=== PATIENT | female | born 1980 | race Two or more races ===

== ENCOUNTER 2021-03-23 09:55 | Emergency (ER) | payer OTHER, SELFPAY ==
--- NOTE | ~2021-03-23 | XR_ITS ---
EXAMINATION: XR THORACIC SPINE CLINICAL INFORMATION: Pain COMPARISON: None TECHNIQUE: 3 views of the thoracic spine were obtained. FINDINGS: There is no fracture or bone destruction seen and the vertebral alignment is normal. There is no disc space narrowing. There is no abnormality of the paraspinal soft tissues. XR/XR thoracic spine 3V IMPRESSION: Unremarkable examination.
--- NOTE | ~2021-03-23 | XR_ITS ---
EXAMINATION: XR LUMBOSACRAL SPINE WITH OBLIQUES CLINICAL INFORMATION: Pain COMPARISON: None TECHNIQUE: AP, both oblique, and lateral views of the lumbar spine. Lateral view of the lumbosacral junction. FINDINGS: The vertebral bodies and posterior elements are normal. The disc spaces are preserved and the vertebral alignment is normal. The paraspinal soft tissues are normal. XR/XR lumbar spine 4V min IMPRESSION: Unremarkable examination.
[2021-03-23 10:05] VITALS: BP 114/67; PULSE 84; RESP 18; TEMP 36.3; O2SAT 100; BMI 21.9
[2021-03-23] MEDS: NaPROXEN 500 MG TABLET PO (11:05)
[2021-03-23] MEDS: Lidocaine 4 % Patch ADH..PATCH 1 PATCH TRANSDERMA (11:06)
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
== END 2021-03-23 12:20 | disposition home or self-care (01) ==
PROVIDERS: Emergency Provider Emergency Medicine
DX: S39.012A Strain of muscle, fascia and tendon of lower back, initial encounter (principal); V43.52XA Car driver injured in collision with other type car in traffic accident, initial encounter; Y93.89 Activity, other specified; Y92.414 Local residential or business street as the place of occurrence of the external cause; Y99.9 Unspecified external cause status
CPT/HCPCS: 72072; 72110; 99283

== ENCOUNTER 2022-10-15 07:41 | Emergency (ER) | payer OTHER, SELFPAY ==
[2022-10-15 07:44] VITALS: BP 142/68; PULSE 110; RESP 19; TEMP 36.6; O2SAT 98; BMI 23.7
--- NOTE | 2022-10-15 08:02 | ED.ANXIETY ---
HPI - Anxiety General Chief Complaint: Nausea/Vomiting/Diarrhea Stated Complaint: anxiety attack Time Seen by Provider: 10/15/22 07:55 Source: patient Mode of arrival: ambulatory Limitations: no limitations History of Present Illness HPI narrative: 41-year-old female presents to the ER for evaluation of anxiety and nausea and vomiting. Patient states she has had a longstanding history of anxiety for several years of which is not treated. She states the last couple of weeks have been significantly worse than usual. She states last night she was doing all of her usual methods to try to help her anxiety and distract her mind, going on walks, taking a cold shower, going in front of the air conditioner. None of these interventions helped her. She was unable to sleep all night. This morning she was having a exacerbation and had a panic attack. She was hyperventilating and developed nausea and vomiting x1. Her mother brought her to the hospital for further evaluation. She is feeling better since arrival. She reports a feeling of bubbling and tightness in her chest. She denies any shortness of breath or abdominal pain. MD complaint: anxiety and other (Nausea and vomiting) Onset (ago): day(s) Symptoms: dyspnea Severity: severe Quality: worsening Place: home History of similar episodes: Yes Provoking factors: none known Relieving factors: nothing Exacerbating factors: thinking about event Associated symptoms: chest pain, diaphoresis and nausea/vomiting Related Data Previous Rx's Medication Instructions Recorded cyclobenzaprine 10 mg tablet 10 mg PO Q8H PRN Muscle spasm #14 03/23/21 tabs lidocaine 5 % topical patch 1 patch topical DAILY pain #15 ea 03/23/21 (Lidoderm) naproxen 500 mg tablet 500 mg PO BID PRN pain #14 tabs 03/23/21 hydroxyzine HCl 25 mg tablet 25 mg PO BID PRN anxiety #20 tabs 10/15/22 Allergies Allergy/AdvReac Type Severity Reaction Status Date / Time No Known Allergies Allergy Verified 10/15/22 07:43 Review of Systems Review of Systems: Yes all other systems are reviewed and are negative [facility] Social History Social History (System 03/23/21 @ 12:07 by Jany Stoll) Advance Directives: No Physical Exam Vital Signs: Vital Signs: Last Vital Signs Temp 98 F 10/15/22 07:44 Pulse 110 H 10/15/22 07:44 Resp 19 10/15/22 07:44 BP 142/68 H 10/15/22 07:44 Pulse Ox 98 10/15/22 07:44 BMI result Body Mass Index 23.7 Appearance: Alert. Oriented X3. No acute distress. Anxious Head: normocephalic, atraumatic. Eyes: Pupils equal, round and reactive to light. ENT: Pharynx normal. No tonsillar swelling or exudate. Neck: Normal inspection. Neck supple. CVS: Normal heart rate and rhythm. Pulses normal. Respiratory: No respiratory distress. Breath sounds normal. Abdomen: Soft and nontender. +BS x4 Skin: Skin warm and dry. Normal skin color. Normal skin turgor. No rashes. Extremities: No lower extremity edema. No joint swelling. Neuro/psych: Oriented X 3. No motor deficit. No sensory deficit. CN II-XII intact. Normal speech and cognition. Anxious but able to speak in complete sentences, make eye contact and answer questions approrpriately Medications Administered Discontinued Medications Generic Name Dose Route Start Last Admin Trade Name Robert PRN Reason Stop Dose Admin Lorazepam 1 mg 10/15/22 08:15 10/15/22 08:42 Lorazepam 1 Mg Tablet PO 10/15/22 08:16 1 mg ONCE ONE Administration Medical Decision Making Medical Decision Making MDM Narrative: 41-year-old female presenting to the ER for evaluation of panic attack associated with nausea, vomiting, chest discomfort. Feeling better since arrival to the ER. Only vomited x1. Nausea is improved. Has not taken any medications for anxiety before. Has never seen a therapist or psychiatrist. Her PCP referred her she never made the appointment. She is willing to try medications and agreeable to calling for referral for therapy today. 1 mg of Ativan ordered. Will reassess 9:28 - patient feeling significantly better. He is agreeable to therapy. Will discharge with p.r.n. hydroxyzine. She will collar PCP and follow up with therapy referral. Stable for discharge home. Differential Diagnosis Differential Diagnoses: The differential diagnosis associated with the presentation includes Panic attack, anxiety disorder, adjustment disorder, bipolar disorder, substance induced mood disorder, gastroenteritis, doubt ACS or cardiac etiology Critical Care Time Critical Care Time Critical Care Time: No Discharge Plan Discharge Clinical Impression: Anxiety Patient Disposition: Home, Self-Care Instructions: Panic Disorder (ED), Anxiety (ED) Additional Instructions: Take the prescribed medication as needed for anxiety. Follow-up with primary care doctor. Call for a referral for therapy. If you develop new or worsening symptoms call 911 or come back to the ER for further evaluation. Prescriptions: New hydroxyzine HCl 25 mg tablet 25 mg PO BID PRN (Reason: anxiety) Qty: 20 0RF No Action naproxen 500 mg tablet 500 mg PO BID PRN (Reason: pain) Qty: 14 0RF cyclobenzaprine 10 mg tablet 10 mg PO Q8H PRN (Reason: Muscle spasm) Qty: 14 0RF lidocaine [Lidoderm] 5 % adhesive patch,medicated 1 patch topical DAILY Qty: 15 0RF Rx Instructions: leave on most painful area for up to 12 hrs. May be substituted
[2022-10-15] MEDS: LORazepam 1 MG TABLET PO (08:42)
== END 2022-10-15 09:37 | disposition home or self-care (01) ==
PROVIDERS: Emergency Provider Emergency Medicine
DX: F41.9 Anxiety disorder, unspecified (principal); R11.2 Nausea with vomiting, unspecified; Z79.899 Other long term (current) drug therapy
CPT/HCPCS: 99282; 99283

== ENCOUNTER 2022-12-16 09:29 | Emergency (ER) | payer OTHER, SELFPAY ==
--- NOTE | 2022-12-16 | ECG_ITS ---
Test Reason : LEFT BREAST AREA PAIN Blood Pressure : / mmHG Vent. Rate : 076 BPM Atrial Rate : 076 BPM P-R Int : 148 ms QRS Dur : 078 ms QT Int : 386 ms P-R-T Axes : 070 064 045 degrees QTc Int : 434 ms Normal sinus rhythm Possible Left atrial enlargement RSR' or QR pattern in V1 suggests right ventricular conduction delay Abnormal ECG No previous ECGs available Referred By: Generic ED Physician Electronically Signed By:HIGINIO PATRICK MD
--- NOTE | ~2022-12-16 | CT_ITS ---
EXAMINATION: CT ABDOMEN AND PELVIS WITHOUT CONTRAST CLINICAL INFORMATION: Right flank to right groin swelling COMPARISON: None available. TECHNIQUE: Multidetector volumetric imaging was performed from the superior aspect of the liver through the pubic symphysis. Sagittal and coronal reformatted images were obtained on the technologist's workstation. This CT examination was performed using dose optimization techniques as appropriate, variously including the following: *Automated exposure control *Adjustment of mA and/or kV according to patient size (this includes techniques or standardized protocols for targeted exams where dose is matched to indication/reason for exam; i.e. 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 LUNG BASES: The visualized lung bases are unremarkable. Nonenlarged heart. No pericardial effusion. LIVER, GALLBLADDER, AND BILIARY TREE: The liver is normal in size, shape, and attenuation. No focal hepatic lesion or biliary ductal dilatation is present. The gallbladder is unremarkable with no evidence of radiopaque gallstones, gallbladder wall thickening, or obvious pericholecystic inflammatory changes. PANCREAS: Unremarkable. SPLEEN: Unremarkable. ADRENAL GLANDS: Unremarkable. KIDNEYS AND URETERS: The kidneys are normal in size, shape, and attenuation. No hydronephrosis or hydroureter. Symmetric, bilateral vague medullary hyperdensities without calculi. No perinephric stranding. BLADDER: Decompressed. GASTROINTESTINAL TRACT: Under distended stomach. Nonobstructive bowel pattern. Unremarkable appendix. Distended feces filled cecum and proximal ascending colon. Diverticulosis. ABDOMINAL WALL: No significant hernia is appreciated. LYMPH NODES: No pathologic lymphadenopathy. VASCULAR: Unremarkable. PELVIC VISCERA: Unremarkable. Likely 1.1 cm right ovarian cyst. Phleboliths. OSSEOUS STRUCTURES: Unremarkable. CT/CT abdomen pelvis wo IV con IMPRESSION: No significant abnormality.. No renal, ureteral, bladder calculi, or hydroureteronephrosis. Vague medullary hyperdensities, medullary sponge kidneys not excluded. Distended feces filled cecum and proximal ascending colon. Diverticulosis without diverticulitis. Fleischner guidelines were followed.
[2022-12-16 09:31] VITALS: BP 115/73; PULSE 84; RESP 16; TEMP 36.6; O2SAT 100; BMI 23.2
[2022-12-16 10:08] LABS: Basophils Absolute Auto 0.1 X10*3/uL (0.0-0.2); Basophils Percent Auto 0.4 % (0-2); Eosinophils Percent Auto 0.3 % (0-4); Hematocrit 42.5 % (37.0-47.0); Hemoglobin 14.5 g/dl (12.0-16.0); Imm Gran Abs Auto 0.04 X10*3/uL (0.00-0.03); Imm Gran Pct Auto 0.3 % (0.0-0.4); Lymphocytes Absolute Auto 1.3 X10*3/uL (1.2-4.9); Lymphocytes Percent Auto 10.4 % (20-40); MANUAL DIFF FLAG SCAN; Mean Corpuscular HGB Conc 34.1 g/dl (31.0-35.0); Mean Corpuscular Hemoglobin 31.5 pg (27.0-33.0); Mean Corpuscular Volume 92.2 fL (80.0-98.0); Monocytes Absolute Auto 0.5 X10*3/uL (0.1-1.2); Monocytes Percent Auto 3.7 % (2-11); Neutrophils Absolute Auto 10.7 x10*3/uL (2.0-8.3); Neutrophils Percent Auto 84.9 % (45-73); PLT CLUMP 1; Red Blood Count 4.61 X10*6/uL (4.20-5.50); Red Cell Distribution Width 13.2 % (11.0-16.0); SCAN SMEAR FLAG 1
[2022-12-16 10:09] LABS: White Blood Count 12.6 X10*3/uL (4.8-10.8)
[2022-12-16 10:21] LABS: Alanine Aminotransferase 10 U/L (0-31); Albumin Level 4.3 g/dL (3.5-5.0); Alkaline Phosphatase 53 U/L (39-117); Anion Gap 11 (12-20); Aspartate Amino Transferase 16 U/L (5-31); Bilirubin Total 0.3 mg/dL (0.0-1.0); Blood Urea Nitrogen 11 mg/dL (9-16); Calcium 9.1 mg/dL (8.4-10.2); Carbon Dioxide 22 mmol/L (22-29); Chloride 109 mmol/L (96-108); Creatinine Clr Calc Pharmacy 83.3; Estimated Glomerular Filt Rate > 60; Glucose Random 101 mg/dL (60-115); Potassium 4.3 mmol/L (3.3-5.1); Sodium 138 mmol/L (135-145); Total Protein 7.5 g/dL (6.5-8.0)
[2022-12-16 10:31] LABS: SLIDE REVIEW VERIFIED
[2022-12-16 11:19] VITALS: BP 121/75; PULSE 70; RESP 18; O2SAT 98
[2022-12-16 11:24] VITALS: BP 125/75; PULSE 73; RESP 16; TEMP 36.9; O2SAT 99
--- NOTE | 2022-12-16 11:28 | PC.NURSE ---
a&ox3, vss and up to date. pt comes in today d/t RLQ abdominal/groin pain/left sided nipple/chest pain. pt was taking a shower when sx began out of nowhere. abdomen/groin tender upon palpation. pt denies any urinary sx. denies hx of kidney stones. pt does have hx of fallopian cysts. normoactive bs noted upon auscultation. lung sounds clear throughout. ED provider bedside assessing pt. pt seems to be in no apparent distress. respirations even and unlabored. call uribe placed within reach.
[2022-12-16] MEDS: Ketorolac Tromethamine 30 MG/ML VIAL IVPUSH (12:13)
[2022-12-16 12:14] LABS: Appearance Urine Clear; Color Urine Yellow; Glucose Urine UA Negative (Negative); Leukocyte Esterase Urine Negative (Negative); Nitrite Urine Negative (Negative); PH 6.5 (5.0-9.0); Urine Blood Negative (Negative); Urine Ketones 15 mg/dL (Negative); Urine Protein Negative (Neg-Trace)
--- NOTE | 2022-12-16 12:16 | PC.NURSE ---
20gIV placed in right forearm w/o difficulty. medication administered per provider order. urine obtained and sent to lab. call uribe placed within reach.
[2022-12-16 12:39] LABS: UPreg QC Valid YES; Urine Pregnancy NEGATIVE (NEGATIVE)
--- NOTE | 2022-12-16 12:57 | PC.NURSE ---
pt states that pain level decreased to 4/10 post medication administration. resting comfortably in no apparent distress. respirations remain even and unlabored.
--- NOTE | 2022-12-16 13:39 | ED.ABDPAIN ---
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 She is on control, has not had her period in a long time, no history of renal colic, no hematuria MD elicited complaint: abdominal pain and flank pain Onset (ago): hour(s) Pain Consistency: other (improved) Location: RLQ and R flank Severity: mild Quality: sharp Related Data Previous Rx's Medication Instructions Recorded cyclobenzaprine 10 mg tablet 10 mg PO Q8H PRN Muscle spasm #14 03/23/21 tabs lidocaine 5 % topical patch 1 patch topical DAILY pain #15 ea 03/23/21 (Lidoderm) naproxen 500 mg tablet 500 mg PO BID PRN pain #14 tabs 03/23/21 hydroxyzine HCl 25 mg tablet 25 mg PO BID PRN anxiety #20 tabs 10/15/22 psyllium seed (sugar) oral powder 1 tsp PO DAILY #1,254 grams 12/16/22 (Metamucil (sugar) oral powder) Allergies Allergy/AdvReac Type Severity Reaction Status Date / Time No Known Allergies Allergy Verified 12/16/22 09:31 Review of Systems Review of Systems Yes all other systems are reviewed and are negative Denies Sensory deficit (Neuro) [facility] Social History Social History Alcohol intake: never Smoked in Last 30 Days: No Use of substances other than those prescribed or required for medical reasons: Yes Substance Use Type: Marijuana Advance Directives: No Patient : No Physical Exam ED Vital Signs: Vital Signs - 24 hr 12/16/22 09:31 12/16/22 11:19 12/16/22 11:24 Temperature 97.8 F 98.4 F Pulse Rate 84 70 73 Respiratory Rate 16 18 16 Blood Pressure 115/73 121/75 125/75 Pulse Oximetry 100 98 99 Oxygen Delivery Method Room Air Room Air Room Air 12/16/22 14:00 Temperature Pulse Rate 76 Respiratory Rate 16 Blood Pressure 130/76 Pulse Oximetry 99 Oxygen Delivery Method Room Air BMI result Body Mass Index 23.2 Const General: healthy appearing Nutritional Appearance: average body habitus Orientation/consciousness: oriented to person and patient oriented x3 Limitations: no limitations HENMT Head: Yes normal to inspection Ears: external ears normal General nose exam: Normal external nose present Mouth: Normal oral and palatal mucosa present and oropharynx normal Throat: Yes posterior oropharynx normal Eyes General: appearance normal, both eyes and all related structures Neck Neck: Yes normal visual inspection Chest Chest palpation & inspection: normal inspection of the chest Resp Auscultation: clear to auscultation bilaterally Cardio Jugular venous distension: no JVD Rate: regular rate Rhythm: regular rhythm Heart sounds: S1 normal heart sound present and S2 normal heart sound present GI Other: abdomen soft nontender Inspection: Yes normal to inspection Palpation (GI): Soft to palpation, nontender and No hepatosplenomegaly present Auscultation: normal bowel sounds Back/Spine/Pelvis Other: Right CVAT Skin General skin exam: no rashes or lesions noted Neuro General: oriented to person and patient oriented x3 Cranial nerves: Yes CN's II-XII intact bilaterally Motor exam (neuro): 5/5 motor strength present throughout Sensory Exam: No Sensory deficit (Neuro) Extrem General: Yes normal to inspection Psych Appearance: grossly normal Course Reevaluation(s) Reevaluation #1: labs, urine, CT all negative except for constipation on CT will dc home on metamucil Time: 14:20 Medical Decision Making Differential Diagnosis Differential Diagnoses: The differential diagnosis associated with the presentation includes (appendicitis, renal colic, UTI, pyelonephritis, ovarian cyst were all considered) Admission/Observation Consideration of admission/observation: Escalation of care including admission/observation considered (upon arrival patient was considered for admission) Lab Data MDM Lab Attestation statement: I reviewed the patient's lab results. (slightly elevated WBC, normal URine) 12/16/22 09:55 12/16/22 09:55 Labs: Lab Results 12/16/22 12/16/22 12/16/22 Range/Units 09:34 09:55 11:38 WBC 12.6 H (4.8-10.8) X10*3/uL RBC 4.61 (4.20-5.50) X10*6/uL Hgb 14.5 (12.0-16.0) g/dl Hct 42.5 (37.0-47.0) % MCV 92.2 (80.0-98.0) fL MCH 31.5 (27.0-33.0) pg MCHC 34.1 (31.0-35.0) g/dl RDW 13.2 (11.0-16.0) % Plt Count TNP MPV Not Reportable Immature Gran % (Auto) 0.3 (0.0-0.4) % Neut % (Auto) 84.9 H (45-73) % Lymph % (Auto) 10.4 L (20-40) % [place] % (Auto) 3.7 (2-11) % Eos % (Auto) 0.3 (0-4) % Baso % (Auto) 0.4 (0-2) % Lymph # (Auto) 1.3 (1.2-4.9) X10*3/uL [place] # (Auto) 0.5 (0.1-1.2) X10*3/uL Eos # (Auto) 0.0 (0.0-0.4) X10*3/uL Baso # (Auto) 0.1 (0.0-0.2) X10*3/uL Abs Immat Gran (auto) 0.04 H (0.00-0.03) X10*3/uL Absolute Neuts (auto) 10.7 H (2.0-8.3) x10*3/uL Absolute Nucleated RBC 0.000 (0.0-0.012) X10*3/uL Nucleated RBC % (auto) 0.0 (0.0-0.2) /100WBC Smear Tech's Comments VERIFIED Sodium 138 (135-145) mmol/L Potassium 4.3 (3.3-5.1) mmol/L Chloride 109 H (96-108) mmol/L Carbon Dioxide 22 (22-29) mmol/L Anion Gap 11 L (12-20) BUN 11 (9-16) mg/dL Creatinine 0.67 (0.5-1.4) mg/dL Estim Creat Clear Calc 83.3 Estimated GFR > 60 Random Glucose 101 (60-115) mg/dL Calcium 9.1 (8.4-10.2) mg/dL Total Bilirubin 0.3 (0.0-1.0) mg/dL AST 16 (5-31) U/L ALT 10 (0-31) U/L Alkaline Phosphatase 53 (39-117) U/L Total Protein 7.5 (6.5-8.0) g/dL Albumin 4.3 (3.5-5.0) g/dL Urine Color Yellow Urine Appearance Clear Urine pH 6.5 (5.0-9.0) Ur Specific [place] 1.010 (1.005-1.025) Urine Protein Negative (Neg-Trace) mg/dL Urine Glucose (UA) Negative (Negative) mg/dL Urine Ketones 15 (Negative) mg/dL Urine Blood Negative (Negative) Urine Nitrite Negative (Negative) Ur Leukocyte Esterase Negative (Negative) Urine Test NEGATIVE (NEGATIVE) Independent Interpretation I performed an independent interpretation of an: CT Scan (no stones seen) Radiology Impression Discussion of test interpretation with radiology: I have reviewed the radiologist's reading. (Constipation by radiology) Prescription Management I considered prescription management with: Antibiotic (considered but no infection seen) Medications Administered Discontinued Medications Generic Name Dose Route Start Last Admin Trade Name Freq PRN Reason Stop Dose Admin Ketorolac Tromethamine 30 mg 12/16/22 11:38 12/16/22 12:13 Ketorolac Tromethamine 30 Mg/Ml Vial IVPUSH 12/16/22 11:39 30 mg ONCE ONE Administration Discharge Plan Discharge Clinical Impression: Abdominal pain, Constipation Patient Disposition: Home, Self-Care Instructions: Constipation (ED) Prescriptions: New Metamucil (sugar) Powder 1 tsp PO DAILY Qty: 1254 0RF No Action naproxen 500 mg tablet 500 mg PO BID PRN (Reason: pain) Qty: 14 0RF cyclobenzaprine 10 mg tablet 10 mg PO Q8H PRN (Reason: Muscle spasm) Qty: 14 0RF lidocaine [Lidoderm] 5 % adhesive patch,medicated 1 patch topical DAILY Qty: 15 0RF Rx Instructions: leave on most painful area for up to 12 hrs. May be substituted hydroxyzine HCl 25 mg tablet 25 mg PO BID PRN (Reason: anxiety) Qty: 20 0RF Referrals: Physician,Unknown J [Primary Care Provider] - 5 days
[2022-12-16 14:00] VITALS: BP 130/76; PULSE 76; RESP 16; O2SAT 99
--- NOTE | 2022-12-16 14:14 | PC.NURSE ---
vss and up to date at this time. pt verbalizing no change in pain level at this time. pt awaiting CT scan results. pt aware of plan of care at this time. call uribe placed within reach.
== END 2022-12-16 14:48 | disposition home or self-care (01) ==
PROVIDERS: Emergency Provider Emergency Medicine
DX: K59.00 Constipation, unspecified (principal); R10.31 Right lower quadrant pain; N64.4 Mastodynia; R10.30 Lower abdominal pain, unspecified; R94.31 Abnormal electrocardiogram [ECG] [EKG]; Z79.899 Other long term (current) drug therapy
CPT/HCPCS: 36415; 74176; 80053; 81003; 81025; 85025; 93005; 96374; 99284; 99285; J1885

== ENCOUNTER 2023-02-11 07:04 | Emergency (ER) | payer OTHER, SELFPAY ==
[2023-02-11 07:18] VITALS: BP 119/80; PULSE 95; RESP 18; TEMP 36.4; O2SAT 97; BMI 23.1
--- NOTE | 2023-02-11 08:21 | ED.NAVMDI ---
HPI - Nausea/Vomiting/Diarrhea General Chief complaint: Nausea/Vomiting/Diarrhea Stated complaint: vomiting nausea Time Seen by Provider: 02/11/23 07:42 Source: patient and family Mode of arrival: ambulatory History of Present Illness HPI Narrative: 42-year-old female with presentation for nausea, vomiting, diarrhea since Monday and describing some associated left-sided flank pain denies any fevers or chills, denies any new cough or sore throat or ear pain. Related Data Previous Rx's Medication Instructions Recorded cyclobenzaprine 10 mg tablet 10 mg PO Q8H PRN Muscle spasm #14 03/23/21 tabs lidocaine 5 % topical patch 1 patch topical DAILY pain #15 ea 03/23/21 (Lidoderm) naproxen 500 mg tablet 500 mg PO BID PRN pain #14 tabs 03/23/21 hydroxyzine HCl 25 mg tablet 25 mg PO BID PRN anxiety #20 tabs 10/15/22 psyllium seed (sugar) oral powder 1 tsp PO DAILY #1,254 grams 12/16/22 (Metamucil (sugar) oral powder) ondansetron 4 mg disintegrating 4 mg PO Q8H PRN nausea and 02/11/23 tablet vomiting 4 days #7 tabs Allergies Allergy/AdvReac Type Severity Reaction Status Date / Time No Known Allergies Allergy Verified 02/11/23 07:18 Review of Systems Review of Systems: Pertinent positives and negatives as stated in HPI [facility] Past Medical History Source: nursing notes reviewed Onset Date is defined in the Problem List Problems that require an onset date and time if occurred within 24 hrs of arrival to the ED Aortic Dissection and Rupture; Neurologic impairment; Cardiopulmonary Arrest; Endotracheal Intubation; Insertion or Replacement of Mechanical Circulatory Assist Device Social History Social History Alcohol intake: never Substance Use Type: Marijuana Advance Directives: No Advance Directives Information Provided: Yes Physical Exam Vital Signs: Vital Signs: Last Vital Signs Temp 97.6 F 02/11/23 07:18 Pulse 95 02/11/23 07:18 Resp 18 02/11/23 07:18 BP 119/80 02/11/23 07:18 Pulse Ox 97 02/11/23 07:18 O2 Del Method Room Air 02/11/23 07:18 BMI result Body Mass Index 23.1 VITAL SIGNS: Reviewed. GENERAL: Well developed, well nourished, in no acute distress. HEAD: Normocephalic/atraumatic EYES: PERRLA, EOMI EARS: Ext canals without abnormality, TMs non-bulging and non-erythematous NOSE: Nares patent bilateral OROPHARYNX: no oral lesions noted, posterior pharynx clear and non-erythematous without noted tonsillar enlargement/erythema/exudates NECK: Supple, no adenopathy LUNGS: Normal breath sounds. No adventitious sounds or accessory muscle use. SpO2<97> CARDIOVASCULAR: Regular rate and rhythm without noted murmurs ABDOMEN: Soft, non-tender, non-distended with bowel sounds. MUSCULOSKELETAL: No tenderness, deformities, or effusions noted on gross inspection. EXTREMITIES: No cyanosis, clubbing or edema. SKIN: Inspection of the skin reveals no rashes NEUROLOGIC: Alert and oriented x 4. Strength and sensation to light touch were grossly intact x 4. Medications Administered Discontinued Medications Generic Name Dose Route Start Last Admin Trade Name Freq PRN Reason Stop Dose Admin Sodium Chloride 500 mls @ 999 mls/hr 02/11/23 08:15 02/11/23 09:15 Ns IV 02/11/23 08:45 Infused .Q31M SG Infusion Ondansetron HCl 4 mg 02/11/23 07:42 02/11/23 08:32 Ondansetron Odt 4 Mg Tab.Rapdis TRANSLINGU 02/11/23 07:43 4 mg ONCE ONE Administration Medical Decision Making Medical Decision Making [facility] Narrative: 42-year-old female with history and clinical presentation, DDX: Gastroenteritis, renal colic, viral illness, UTI, pancreatitis, no suspicion for cholecystitis. I reviewed all investigations and hematologic indices are negative for leukocytosis/left shift/anemia or thrombocytopenia. Chemistry indices are negative for MICK and there is no electrolyte derangement, beta hCG is undetectable and there is a mild bump in transaminases., however patient does not have right upper quadrant pain. Urinalysis negative for UTI, and viral testing as suspected positive for COVID-19. Imaging consistent with constipation. Patient received IV fluids, antiemetics and on re-evaluation is feeling improved. She is otherwise discharged with instructions to isolate and given a prescription for antinausea medication. Differential Diagnosis Differential Diagnoses: The differential diagnosis associated with the presentation includes Please see the discussion above Admission/Observation Consideration of admission/observation: Escalation of care including admission/observation considered Please see the discussion above Lab Data MDM Lab Attestation statement: I reviewed the patient's lab results. Please see the discussion above 02/11/23 07:47 02/11/23 07:47 Labs: Lab Results 02/11/23 02/11/23 Range/Units 07:47 08:36 WBC 4.9 (4.8-10.8) X10*3/uL RBC 4.90 (4.20-5.50) X10*6/uL Hgb 15.4 (12.0-16.0) g/dl Hct 44.1 (37.0-47.0) % MCV 90.0 (80.0-98.0) fL MCH 31.4 (27.0-33.0) pg MCHC 34.9 (31.0-35.0) g/dl RDW 12.7 (11.0-16.0) % Plt Count 229 (160-400) X10*3/uL MPV 10.6 (9.4-12.3) fL Immature Gran % (Auto) 0.2 (0.0-0.4) % Neut % (Auto) 53.9 (45-73) % Lymph % (Auto) 37.7 (20-40) % Grady % (Auto) 7.0 (2-11) % Eos % (Auto) 0.6 (0-4) % Baso % (Auto) 0.6 (0-2) % Lymph # (Auto) 1.8 (1.2-4.9) X10*3/uL Grady # (Auto) 0.3 (0.1-1.2) X10*3/uL Eos # (Auto) 0.0 (0.0-0.4) X10*3/uL Baso # (Auto) 0.0 (0.0-0.2) X10*3/uL Abs Immat Gran (auto) 0.01 (0.00-0.03) X10*3/uL Absolute Neuts (auto) 2.6 (2.0-8.3) x10*3/uL Absolute Nucleated RBC 0.000 (0.0-0.012) X10*3/uL Nucleated RBC % (auto) 0.0 (0.0-0.2) /100WBC Sodium 140 (135-145) mmol/L Potassium 4.0 (3.3-5.1) mmol/L Chloride 104 (96-108) mmol/L Carbon Dioxide 23 (22-29) mmol/L Anion Gap 17 (12-20) BUN 8 L (9-16) mg/dL Creatinine 0.75 (0.5-1.4) mg/dL Estim Creat Clear Calc 74.5 Estimated GFR > 60 Random Glucose 114 (60-115) mg/dL Calcium 9.7 D (8.4-10.2) mg/dL Total Bilirubin 0.3 (0.0-1.0) mg/dL AST 46 H (5-31) U/L ALT 40 H (0-31) U/L Alkaline Phosphatase 54 (39-117) U/L Total Protein 8.1 H (6.5-8.0) g/dL Albumin 4.7 (3.5-5.0) g/dL Lipase 25 (8-78) U/L Beta HCG, Quant < 2 mIU/mL Urine Color Yellow Urine Appearance Clear Urine pH 7.0 (5.0-9.0) Ur Specific [place] 1.020 (1.005-1.025) Urine Protein 100 (2+) H (Neg-Trace) mg/dL Urine Glucose (UA) Negative (Negative) mg/dL Urine Ketones 80 (Negative) mg/dL Urine Blood Negative (Negative) Urine Nitrite Negative (Negative) Ur Leukocyte Esterase Trace H (Negative) Urine RBC 0-2 (0-2) /HPF Urine WBC 6-10 H (0-5) /HPF Ur Squamous Epith Cells 3-5 (0-2) /HPF Urine Bacteria Trace (None Seen) Hyaline Casts 0-2 (0-2) /LPF Urine Test NEGATIVE (NEGATIVE) COVID-19 (CARLA) Positive A (Negative) COVID-19 Clin Com See Note Influenza Type A (DAMARIS) Negative (Negative) Influenza Type B (DAMARIS) Negative (Negative) Influenza A & B Note See Note Radiology Impression Discussion of test interpretation with radiology: I have reviewed the radiologist's reading. Radiologist Impression: Please see the discussion above External Record Review External record reviewed: Outpatient record, Prior outpatient labs and Prior outpatient radiology Discharge Plan Discharge Clinical Impression: Gastroenteritis, Lab test positive for detection of COVID-19 virus, Constipation Patient Disposition: Home, Self-Care Instructions: Constipation (ED), Gastroenteritis (ED), COVID-19 (Coronavirus Disease 2019) (ED) Additional Instructions: 1. You will need to take [id number] Tylenol/ibuprofen for back pain, body aches, headaches or temperatures greater than 100.4. 2. Since your symptoms started on Monday, total days for isolation is for 5 days which would be today. 3. You have been given a prescription for antinausea medication. 4. Please follow-up with primary care doctor. Return to the ER for any worsening symptoms. Prescriptions: New ondansetron 4 mg tablet,disintegrating 4 mg PO Q8H PRN (Reason: nausea and vomiting) 4 Days Qty: 7 0RF No Action naproxen 500 mg tablet 500 mg PO BID PRN (Reason: pain) Qty: 14 0RF cyclobenzaprine 10 mg tablet 10 mg PO Q8H PRN (Reason: Muscle spasm) Qty: 14 0RF lidocaine [Lidoderm] 5 % adhesive patch,medicated 1 patch topical DAILY Qty: 15 0RF Rx Instructions: leave on most painful area for up to 12 hrs. May be substituted hydroxyzine HCl 25 mg tablet 25 mg PO BID PRN (Reason: anxiety) Qty: 20 0RF Metamucil (sugar) Powder 1 tsp PO DAILY Qty: 1254 0RF Referrals: Carina Maynard MD [Primary Care Provider] -
== END 2023-02-11 10:28 | disposition home or self-care (01) ==
PROVIDERS: Emergency Provider Student in an Organized Health Care Education/Training Program; PCP Internal Medicine
DX: U07.1 COVID-19 (principal); K52.9 Noninfective gastroenteritis and colitis, unspecified; K59.00 Constipation, unspecified
CPT/HCPCS: 36415; 74018; 80053; 81001; 81025; 83690; 84702; 85025; 87086; 87502; 87635; 96360; 99284

== ENCOUNTER 2023-02-13 21:43 | Emergency (ER) | payer OTHER, SELFPAY ==
[2023-02-13 22:07] VITALS: BP 123/74; PULSE 88; RESP 16; TEMP 36.4; O2SAT 95; BMI 23.7
--- NOTE | 2023-02-13 22:53 | MHC.EDTECH ---
Patient brought into triage area,labs and covid obtained and sent to lab
[2023-02-13 22:59] LABS: MANUAL DIFF FLAG NO
[2023-02-13 23:11] LABS: Basophils Percent Auto 0.4 % (0-2); Eosinophils Absolute Auto 0.3 X10*3/uL (0.0-0.4); Eosinophils Percent Auto 3.7 % (0-4); Hematocrit 45.1 % (37.0-47.0); Hemoglobin 15.6 g/dl (12.0-16.0); Imm Gran Abs Auto 0.02 X10*3/uL (0.00-0.03); Imm Gran Pct Auto 0.3 % (0.0-0.4); Lymphocytes Absolute Auto 1.5 X10*3/uL (1.2-4.9); Lymphocytes Percent Auto 20.3 % (20-40); Mean Corpuscular HGB Conc 34.6 g/dl (31.0-35.0); Mean Corpuscular Hemoglobin 31.1 pg (27.0-33.0); Mean Platelet Volume 10.8 fL (9.4-12.3); Monocytes Absolute Auto 0.5 X10*3/uL (0.1-1.2); Neutrophils Percent Auto 68.3 % (45-73); Platelet Count 254 X10*3/uL (160-400); Red Blood Count 5.01 X10*6/uL (4.20-5.50); Red Cell Distribution Width 12.6 % (11.0-16.0); White Blood Count 7.4 X10*3/uL (4.8-10.8)
[2023-02-13 23:27] LABS: Alanine Aminotransferase 51 U/L (0-31); Albumin Level 4.6 g/dL (3.5-5.0); Alkaline Phosphatase 51 U/L (39-117); Anion Gap 14 (12-20); Aspartate Amino Transferase 34 U/L (5-31); Bilirubin Total 0.5 mg/dL (0.0-1.0); Blood Urea Nitrogen 4 mg/dL (9-16); Calcium 9.8 mg/dL (8.4-10.2); Carbon Dioxide 22 mmol/L (22-29); Chloride 107 mmol/L (96-108); Creatinine Clr Calc Pharmacy 71.6; Estimated Glomerular Filt Rate > 60; Glucose Random 114 mg/dL (60-115); Potassium 4.1 mmol/L (3.3-5.1); Sodium 139 mmol/L (135-145); Total Protein 8.1 g/dL (6.5-8.0)
[2023-02-13 23:31] LABS: COVID-19 Test Positive (Negative); IDNOW Serial# 08D9AD1C
[2023-02-14 07:09] VITALS: BP 122/81; PULSE 100; RESP 19; TEMP 36.8; O2SAT 98
--- NOTE | 2023-02-14 07:12 | ED_ITS ---
HPI - General Adult General Chief complaint: Nausea/Vomiting/Diarrhea Stated complaint: chills/unable to keep food down Time Seen by Provider: 02/14/23 07:12 Source: patient Mode of arrival: ambulatory Limitations: no limitations History of Present Illness HPI narrative: 42-year-old female presents with fatigue, malaise, myalgias, nausea, vomiting, diarrhea for the past week. Patient currently COVID positive, she was seen here on 02/11/2023 for similar complaints. Taking Zofran with little to no relief. Reports multiple sick contacts at home. Not eating as much as she usually does. Denies fevers, chills, chest pain, shortness of breath, headache, vision changes, dizziness, weakness. Related Data Previous Rx's Medication Instructions Recorded cyclobenzaprine 10 mg tablet 10 mg PO Q8H PRN Muscle spasm #14 03/23/21 tabs lidocaine 5 % topical patch 1 patch topical DAILY pain #15 ea 03/23/21 (Lidoderm) naproxen 500 mg tablet 500 mg PO BID PRN pain #14 tabs 03/23/21 hydroxyzine HCl 25 mg tablet 25 mg PO BID PRN anxiety #20 tabs 10/15/22 psyllium seed (sugar) oral powder 1 tsp PO DAILY #1,254 grams 12/16/22 (Metamucil (sugar) oral powder) ondansetron 4 mg disintegrating 4 mg PO Q8H PRN nausea and 02/11/23 tablet vomiting 4 days #7 tabs Allergies Allergy/AdvReac Type Severity Reaction Status Date / Time No Known Allergies Allergy Verified 02/13/23 22:06 Review of Systems 2 Review of Systems: Yes all other systems are reviewed and are negative PMFSH Past Medical History Attestation statement: The following information was validated with the patient. Source: old records reviewed and nursing notes reviewed Onset Date is defined in the Problem List Problems that require an onset date and time if occurred within 24 hrs of arrival to the ED Aortic Dissection and Rupture; Neurologic impairment; Cardiopulmonary Arrest; Endotracheal Intubation; Insertion or Replacement of Mechanical Circulatory Assist Device Social History Social History Alcohol intake: never Substance Use Type: Marijuana Advance Directives: No Advance Directives Information Provided: No Physical Exam ED Vital Signs: Vital Signs - 24 hr 02/13/23 22:07 02/14/23 07:09 Temperature 97.5 F 98.3 F Pulse Rate 88 100 Respiratory Rate 16 19 Blood Pressure 123/74 122/81 Pulse Oximetry 95 98 Oxygen Delivery Method Room Air Room Air BMI result Body Mass Index 23.7 vss Appearance: Alert.? Oriented X3.? No acute distress.? Head: Normocephalic, atraumatic, no step-offs or deformities Eyes: Pupils equal, round and reactive to light.? Neck: Normal inspection.? Neck supple.? CVS: Normal heart rate and rhythm.? Pulses normal.? Respiratory: No respiratory distress.? Breath sounds normal.? Abdomen: Soft and nontender.? Skin: Skin warm and dry.? Normal skin color.? Normal skin turgor.? Extremities: No lower extremity edema.? No calf ttp. 5/5 strength to bilateral upper and lower extremities Neuro: Oriented X 3.? No motor deficit.? No sensory deficit. CN 2-12 intact Course Reevaluation(s) Reevaluation #1: CBC unremarkable. Chemistry no acute findings requiring intervention. Transaminases slightly elevated however this does not appear to be an acute change. Medical Decision Making Medical Decision Making [facility] Narrative: ??42-year-old female presenting with viral symptoms ongoing for the past few days. ??Physical examination benign ?This is likely flu versus COVID versus RSV versus other viral illness vs gasterentereits. Unlikely pneumonia, PE, ACS, abdomen, obstruction, diverticulitis, pancreatitits ,cholecysitits. Will rule out metabolic derangements. Unlikely per patient Plan- viral test? Differential Diagnosis Differential Diagnoses: The differential diagnosis associated with the presentation includes This is likely flu versus COVID versus RSV versus other viral illness vs gasterentereits. Unlikely pneumonia, PE, ACS, abdomen, obstruction, diverticulitis, pancreatitits ,cholecysitits. Will rule out metabolic derangements. Unlikely per patient Admission/Observation Consideration of admission/observation: Escalation of care including admission/observation considered unlikely Lab Data [facility] Lab Attestation statement: I reviewed the patient's lab results. 02/13/23 22:51 02/13/23 22:51 Labs: Lab Results 02/13/23 Range/Units 22:51 WBC 7.4 (4.8-10.8) X10*3/uL RBC 5.01 (4.20-5.50) X10*6/uL Hgb 15.6 (12.0-16.0) g/dl Hct 45.1 (37.0-47.0) % MCV 90.0 (80.0-98.0) fL MCH 31.1 (27.0-33.0) pg MCHC 34.6 (31.0-35.0) g/dl RDW 12.6 (11.0-16.0) % Plt Count 254 (160-400) X10*3/uL MPV 10.8 (9.4-12.3) fL Immature Gran % (Auto) 0.3 (0.0-0.4) % Neut % (Auto) 68.3 (45-73) % Lymph % (Auto) 20.3 (20-40) % Dane % (Auto) 7.0 (2-11) % Eos % (Auto) 3.7 (0-4) % Baso % (Auto) 0.4 (0-2) % Lymph # (Auto) 1.5 (1.2-4.9) X10*3/uL Dane # (Auto) 0.5 (0.1-1.2) X10*3/uL Eos # (Auto) 0.3 (0.0-0.4) X10*3/uL Baso # (Auto) 0.0 (0.0-0.2) X10*3/uL Abs Immat Gran (auto) 0.02 (0.00-0.03) X10*3/uL Absolute Neuts (auto) 5.0 (2.0-8.3) x10*3/uL Absolute Nucleated RBC 0.000 (0.0-0.012) X10*3/uL Nucleated RBC % (auto) 0.0 (0.0-0.2) /100WBC Sodium 139 (135-145) mmol/L Potassium 4.1 (3.3-5.1) mmol/L Chloride 107 (96-108) mmol/L Carbon Dioxide 22 (22-29) mmol/L Anion Gap 14 (12-20) BUN 4 L (9-16) mg/dL Creatinine 0.78 (0.5-1.4) mg/dL Estim Creat Clear Calc 71.6 Estimated GFR > 60 Random Glucose 114 (60-115) mg/dL Calcium 9.8 (8.4-10.2) mg/dL Total Bilirubin 0.5 (0.0-1.0) mg/dL AST 34 H (5-31) U/L ALT 51 H (0-31) U/L Alkaline Phosphatase 51 (39-117) U/L Total Protein 8.1 H (6.5-8.0) g/dL Albumin 4.6 (3.5-5.0) g/dL COVID-19 (CARLA) Positive A (Negative) COVID-19 Clin Com See Note External Record Review External record reviewed: Office record, Outpatient record and Prior outpatient labs Prescription Management I considered prescription management with: Other continue taking zofran Critical Care Time Critical Care Time Critical Care Time: No Discharge Plan Discharge Clinical Impression: COVID-19 Patient Disposition: Home, Self-Care Instructions: COVID-19 (Coronavirus Disease 2019) (ED) Additional Instructions: Take your medications as prescribed. If you were prescribed antibiotics today, it is important that you take your medication to their entirety, do not skip any doses, do not finish them early. Today you tested positive for COVID-19. Take Ibuprofen or Tylenol as needed for fevers or body aches. Quarantine for 5 days and ensure you wear a mask. After 5 days you should wear a mask for 5 days after that. Practice social distancing and good hand hygiene. Drink plenty of fluids. Follow-up with your primary care provider this week. Return to the emergency department with new or worsening symptoms. In case of emergency call 911 You can purchase a pulse oximeter from your local pharmacy or grocery store, and monitor your oxygen saturation if it goes below 94% you should return to the emergency department for further evaluation. Continue taking zofran for nausea and vomiting Prescriptions: No Action naproxen 500 mg tablet 500 mg PO BID PRN (Reason: pain) Qty: 14 0RF cyclobenzaprine 10 mg tablet 10 mg PO Q8H PRN (Reason: Muscle spasm) Qty: 14 0RF lidocaine [Lidoderm] 5 % adhesive patch,medicated 1 patch topical DAILY Qty: 15 0RF Rx Instructions: leave on most painful area for up to 12 hrs. May be substituted hydroxyzine HCl 25 mg tablet 25 mg PO BID PRN (Reason: anxiety) Qty: 20 0RF Metamucil (sugar) Powder 1 tsp PO DAILY Qty: 1254 0RF ondansetron 4 mg tablet,disintegrating 4 mg PO Q8H PRN (Reason: nausea and vomiting) 4 Days Qty: 7 0RF Referrals: Carina Maynard MD [Primary Care Provider] - Stand Alone Forms: Work/School Release
[2023-02-14] MEDS: diphenhydrAMINE HCL 25 MG CAPSULE 50 MG PO (08:04)
[2023-02-14] MEDS: Metoclopramide HCl 10 MG TABLET PO (08:04)
== END 2023-02-14 08:08 | disposition home or self-care (01) ==
PROVIDERS: Emergency Provider Emergency Medicine Emergency Medical Services; PCP Internal Medicine
DX: U07.1 COVID-19 (principal); R11.2 Nausea with vomiting, unspecified; M79.10 Myalgia, unspecified site; Z79.899 Other long term (current) drug therapy
CPT/HCPCS: 80053; 85025; 87635; 99282; 99283

== ENCOUNTER 2023-10-05 08:09 | Outpatient (REF) | payer OTHER, SELFPAY ==
--- NOTE | ~2023-10-05 | MM_ITS ---
EXAMINATION: MM SCREENING DIGITAL BREAST TOMOSYNTHESIS, BILATERAL CLINICAL INFORMATION: Screening. Asymptomatic. COMPARISON: Mammography: Comparison is made with available priors TECHNIQUE: Digital breast tomosynthesis is performed in both the craniocaudal and mediolateral oblique views along with computer-aided detection (CAD). Synthesized 2D images are generated from the tomosynthesis. FINDINGS: The breasts are heterogeneously dense, which may obscure small masses (ACR BI-RADS breast composition Category c). There are no significant masses, abnormal calcifications, or other abnormalities. MM/MM tomosynthesis screening BI IMPRESSION: No mammographic evidence of malignancy. ASSESSMENT: BI-RADS BI-RADS 1 - Negative RECOMMENDATION: Routine annual mammography screening. 1 year F/U This examination should not preclude the clinical evaluation of a suspicious palpable abnormality. This patient's information was entered into a reminder system with a target due date for their next mammogram. Electronically signed by: Nilam Roe DO 10/27/2023 08:49 PM EDT
== END 2023-10-05 08:10 | disposition home or self-care (01) ==
LOC: HO.MAMMO 08:09
PROVIDERS: PCP Internal Medicine; Visit Provider Internal Medicine
DX: Z12.31 Encounter for screening mammogram for malignant neoplasm of breast (principal)
CPT/HCPCS: 77063; 77067

== ENCOUNTER → 2023-10-05 08:15 | Outpatient (BNV) | payer OTHER, SELFPAY | PROVIDERS: PCP Internal Medicine; Visit Provider Internal Medicine | DX: Z12.31 Encounter for screening mammogram for malignant neoplasm of breast (principal) | CPT/HCPCS: 77063; 77067 ==

== ENCOUNTER → 2024-10-10 08:00 | Outpatient (BNV) | payer OTHER, SELFPAY | PROVIDERS: PCP Internal Medicine; Visit Provider Internal Medicine | DX: Z12.31 Encounter for screening mammogram for malignant neoplasm of breast (principal) | CPT/HCPCS: 77063; 77067 ==

== ENCOUNTER 2024-10-10 08:05 | Outpatient (REF) | payer OTHER, SELFPAY ==
--- OUTSIDE RECORDS SUMMARY | 2024-03-27 09:20 | XMS_ITS ---
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 :1980 A ge:43 Y S ex:Female Date:03/27/2024 Address:[address] [place], [place] [address] [facility] Subjective: * Chief Complaints: * 1 . 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 * Medical History: Objective: * Vitals: Assessment: Plan: * Treatment: * Images: Billing Information: * Visit Code: * Procedure Codes: * Electronic signature of Robert Hutchinson MD on 10/10/2024 at 08:18 AM EDT Sign off status: Pending * Appointment Provider: Gilberto Hutchinson M.D. Date: 03/27/2024 Generated for Matteo srinivasan/Shannan/Tahir on: 0 10/10/2024 08:18 AM EDT
--- NOTE | ~2024-10-10 | MM_ITS ---
EXAMINATION: MM SCREENING DIGITAL BREAST TOMOSYNTHESIS, BILATERAL CLINICAL INFORMATION: Screening. Asymptomatic. COMPARISON: Mammography: Comparison is made with available priors TECHNIQUE: Digital breast mammography with tomosynthesis is performed in both the craniocaudal and mediolateral oblique views along with computer-aided detection (CAD). FINDINGS: The breasts are heterogeneously dense, which may obscure small masses (ACR BI-RADS breast composition Category c). There are no significant masses, abnormal calcifications, or other abnormalities. MM/MM tomosynthesis screening BI IMPRESSION: No mammographic evidence of malignancy. ASSESSMENT: BI-RADS BI-RADS 1 - Negative RECOMMENDATION: Routine annual mammography screening. 1 year F/U This examination should not preclude the clinical evaluation of a suspicious palpable abnormality. This patient's information was entered into a reminder system with a target due date for their next mammogram. Electronically signed by: Nilam Roe DO 10/11/2024 06:08 PM VARUN
--- OUTSIDE RECORDS SUMMARY | 2024-10-10 08:18 | XMS_ITS | Patient Health Record ---
Author Organization [facility] Address [address] [address] Care Team Providers Care Investigations Director Name Role Phone Natalie Hutcihnson Unavailable [phone] Reason For Referral No Information Encounters Encounter Location Date Provider Diagnosis [facility] [email or web address] [facility] [address] [address] 03/27/2024 Natalie Hutchinson Plan Of Treatment No Information
--- OUTSIDE RECORDS SUMMARY | 2024-10-10 08:19 | XMS_ITS | Clinical Summary ---
Author Organization [address] Address [address] [place] [address] [place] [address] Phone Care Team Providers Care Shoe Repairman Name Role Phone Carina Maynard MD Primary Care Provider Allergies No known active allergies Medications drospirenone-ethin yl estradioL (Lynne, Leora,) 3-0.02 mg per tabletIndications: Encounter for repeat prescription of oral contraceptives Take one tablet daily by mouth, skipping placebo week to achieve amenorrhea. 112 tablet 3 09/20/19 25 Active drospirenone-ethin yl estradioL (Lynne, 28,) 3-0.02 mg per tabletIndications: Encounter for repeat prescription of oral contraceptives Take 1 tablet by mouth 1 (one) time each day. 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 Fibroid. Anxiety 02/17/2017 Endometrial disorder 01/27/2017 Overview (12/25/2023): Polyp vs fibroid MRI/sonohysterogram pending. Follows with gynecology (see telephone encounter 01/27/2017) TOA (tubo-ovarian abscess) 06/29/2016 Ovarian abscess 06/26/2016 Overview (12/25/2023): 06/2016 s/p unilateral salphingo-oophrectomy Encounters Date Type Department Care Team Description 07/23/2024 11:30 AM EDT Office Visit Adult Medicine [address] [phone] Javi Eubanks PA Routine physical examination (Primary Dx); Mixed hyperlipidemia; Nail abnormality from Last 3 Months Immunizations Name Administration Dates Next Due HPV 9-valent (Gardisil) 9yo to less than 46yo ,05/06/2024 11/05/2024 Pfizer (ages 12 & older) ALVIN S-CoV-2 COVID-19, mRNA, LNP-S, bigg-sucrose, preservative free 03/04/2021 Tdap Tetanus diptheria acell ular pertussis (Boostrix; Adacel) 7yo and older 07/12/2016 Surgical History Surgery Date Site/Laterality Comments TYMPANOSTOMY TUBE PLACEMENT PROCEDURE: HISTORICAL PE TUBES; COMMENT: x 5 OOPHORECTOMY 06/22/2016 PROCEDURE: KS OOPHORECTOMY PARTIAL/TOTAL UNI/BI; COMMENT: Exploratory laparotomy, Left salpingo-oophorectomy for TOA Medical History Medical History Date Comments Marijuana use 2013 DX:Marijuana use ; COMMENT: daily TOA (tubo-ovarian abscess) 06/29/2016 DX:TO A (tubo-ovarian abscess) Endometrial disorder 01/27/2017 DX:Endometr ial disorder; COMMENT: Polyp vs fibroid MRI/sonohysterogram pending. 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 Fibroid. Anxiety 02/17/2017 DX:Anxiety Family History Medical History Relation Name Comments Pancreatic cancer Father doing well s/p radiation Diabetes Maternal Grandfather Glaucoma Maternal Grandfather Stroke Maternal Grandfather Diabetes Maternal Grandmother Other: kidney disease Maternal Grandmother Stroke Maternal Grandmother Asthma Mother Alcohol/Drug Uncle maternal Liver disease Uncle Pancreatic cancer Uncle Seizures Uncle Breast cancer Neg Hx Cervical cancer Neg Hx Colon cancer Neg Hx Ovarian cancer Neg Hx Uterine cancer Neg Hx Relation Name Status Comments Daughter Alive Father Alive Father's Brother Maternal Grandfather Alive Maternal Grandmother Mother Alive Paternal Grandfather Paternal Grandmother Sister Alive Uncle Social History Tobacco Use Types Packs/Day Years Used Date Smoking Tobacco: Never Smokeless Tobacco: Never Tobacco Cessation:Counseling Given: Not Answered Alcohol Use Standard Drinks/Week Comments No 0 (1 standard drink = 0.6 oz pur e alcohol) Comments No Sex and Gender Information Value Date Recorded Sex Assigned at Not on file Legal Sex Female 6:35 AM EST Gender Identity Not on file Sexual Orientation Not on file Obstetrics History Para Term AB IAB SAB Ectopic Multiple Livin g Live Births 1 1 1 0 0 0 1 1 Date Outcome GA Total Labor Labor/2nd/3rd Weight Sex Type Anes PTL Winsome A1 A5 Name Clin 01/17 Term 40w 0d F Vag-S pont Living [facility] Last Filed Vital Signs Vital Sign Reading Time Taken Comments Blood Pressure 98/64 07/23/2024 11:19 AM EDT Pulse 76 07/23/2024 11:19 AM EDT Temperature 36.4 C (97.5 F) 07/23/2024 11:19 AM EDT Respiratory Rate 12 07/23/2024 11:1 9 AM EDT Oxygen Saturation - - Inhaled Oxygen Concentration - - Weight 61.2 kg (134 lb 14.4 oz) 025 11:19 AM EDT Height 158.8 cm (5' 2.5 ) 07/23/2024 11 :19 AM EDT Body Mass Index 24.28 07/23/2024 11:19 AM EDT Plan of Treatment Upcoming Encounters Date Type Department Care Team (Late st Contact Info) Description 11/01/2024 4:00 PM EDT Clinical Support Obstetrics and Gynecology - [address] [phone] 07/24/2025 2:30 PM EDT Office Visit Adult Medicine [address] [phone] Carina Maynard MD [address] [place] [address] Health Maintenance Due Date Last Done Comments Hepatitis B Vaccines (1 of 3 - 19+ 3-dose series) 2000 HIV Screening 01/15/2022 Hepatitis C Screening 01/15/2022 Social Influencers of Health Screening 01/15/2022 Depression Screening 02/07/2024 Influenza Vaccine (#1) 2024 HPV Vaccines (3 - 3-dose SCD M series) 11/05/2024 07/05/2024, 05/06/2024 Breast Cancer Screening 10/04/2025 10/05/19 24, 10/05/2023 DTaP,Tdap,and Td Vaccines (2 - Td or Tdap) 07/12/2026 07/12/2016 Cervical Cancer Screening: HPV 04/21/2027 04/20/2022 Cholesterol Screening (Lipid Panel) 07/23/2029 07/23/2024, 07/13/2023, 07/13/2023 COVID-19 Vaccine Discontinued 03/04/2021, 02/11/2021 HIB Vaccines Aged Out No longer eligi ble based on patient's age to complete this topic Hepatitis A Vaccines Aged Out No long er eligible based on patient's age to complete this topic IPV Vaccines Aged Out No longer eligi ble based on patient's age to complete this topic MMR Vaccines Aged Out No longer eligi ble based on patient's age to complete this topic Meningococcal ACWY Vaccine Aged Out N o longer eligible based on patient's age to complete this topic Meningococcal B Vaccine Aged Out No l onger eligible based on patient's age to complete this topic Pneumococcal Vaccine: Pediatrics (0 to 5 Years) and At-Risk Patients (6 to 49 Years) Aged Out No longer eligible based on patient's age to complete this topic RSV Immunization Patients Under 20 months Aged Out No longer eligible based on patient's age to complete this topic Varicella Vaccines Aged Out No longer eligible based on patient's age to complete this topic Procedures Procedure Name Priority Date/Time Associated Diagnosis Comments CBC WITH AUTO DIFFERENTIAL Routine 07/23/2024 12:08 PM EDT Routine physical examination CBC AND DIFFERENTIAL Routine 07/23/2024 12:08 PM EDT Routine physical examination COMPREHENSIVE METABOLIC PANEL Routine 07/23/2024 12:08 PM EDT Routine physical examination HEMOGLOBIN A1C Routine 07/23/2024 12:08 PM EDT Routine physical examination LIPID PANEL WITH REFLEX TO DIRECT LDL Routine 07/23/2024 12:08 PM EDT Routine physical examination Mixed hyperlipidemia THYROID STIMULATING HORMONE WITH REFLEX TO FREE T4 AND FREE T3 Routine 07/23/2024 12:08 PM EDT Routine physical examination MG MAMMO DIGITAL DIAGNOSTIC BILAT Routine 10/05/2023 8:35 AM EDT HM HPV Routine 04/20/2022 from Last 3 Months or Most Recently Relevant to Health Maintenance Results * Thyroid stimulating hormone with reflex to free t4 and free t3 (07/23/2024 12:08 PM EDT) Pathologist [facility] TSH 0.98 0.40 - 4.00 mcIU/mL LAB CHEMISTRY METHOD 07/23/2024 4:39 PM EDT [facility] Blood Venous blood specimen / Unknown Venipuncture / Unknown 07/23/2024 12:08 PM EDT 07/23/2024 12:08 PM EDT Javi PETERSEN LAB BLOOD ORDERABLES Final Res ult [facility] [address] [place] [address], * (ABNORMAL) Lipid panel with reflex to direct LDL (07/23/2024 12:08 PM EDT) Cholesterol 254(H) 0 - 200 mg/dL LAB CHEMISTRY METHOD 07/23/2024 3:48 PM EDT [facility] Triglycerides 127 0 - 150 mg/dL LAB CHEMISTRY METHOD 07/23/2024 3:48 PM EDT [facility] HDL 87 >=40 mg/dL LAB CHEMISTRY METHOD 07/23/2024 3:48 PM EDT [facility] LDL Calculated 142(H) 0 - 100 mg/dL LAB CHEMISTRY METHOD 07/23/2024 3:48 PM EDT [facility] VLDL Cholesterol Jake 25.4 mg/dL LAB CHEMISTRY METHOD 07/23/2024 3:48 PM EDT [facility] Non HDL Chol. (LDL+VLDL) 167(H) <145 mg/dL LAB CHEMISTRY METHOD 07/23/2024 3:48 PM EDT [facility] Chol/HDL Ratio 2.9 0.0 - 4.4 LAB CHEMISTRY METHOD 07/23/2024 3:48 PM EDT [facility] Blood Venous blood specimen / Unknown Venipuncture / Unknown 07/23/2024 12:08 PM EDT 07/23/2024 12:08 PM EDT Javi PETERSEN LAB BLOOD ORDERABLES Final Res ult [facility] [address] [place] [address], [place] [phone] * (ABNORMAL) CBC auto differential (07/23/2024 12:08 PM EDT) WBC 9.1 4.8 - 10.8 K/mcL LAB HEMETOLOGY METHOD 07/23/2024 2:15 PM EDT [facility] RBC 4.40 3.80 - 4.80 M/mcL LAB HEMETOLOGY METHOD 07/23/2024 2:15 PM EDT [facility] Hemoglobin 13.4 11.5 - 16.0 g/dL LAB HEMETOLOGY METHOD 07/23/2024 2:15 PM EDT [facility] Hematocrit 41.2 35.0 - 47.0 % LAB HEMETOLOGY METHOD 07/23/2024 2:15 PM EDT [facility] MCV 93.6 79.0 - 98.0 FL LAB HEMETOLOGY METHOD 07/23/2024 2:15 PM EDT [facility] MCH 30.5 27.0 - 32.0 pcg LAB HEMETOLOGY METHOD 07/23/2024 2:15 PM EDT [facility] MCHC 32.5 32.0 - 37.0 g/dL LAB HEMETOLOGY METHOD 07/23/2024 2:15 PM EDT [facility] RDW 13.5 11.0 - 15.0 % LAB HEMETOLOGY METHOD 07/23/2024 2:15 PM EDT [facility] Platelets 297 130 - 400 K/mcL LAB HEMETOLOGY METHOD 07/23/2024 2:15 PM EDT [facility] MPV 11.5(H) 7.0 - 11.0 FL LAB HEMETOLOGY METHOD 07/23/2024 2:15 PM EDT [facility] NRBC 0.0 <1.0 % LAB HEMETOLOGY METHOD 07/23/2024 2:15 PM EDT [facility] NRBC Absolute 0.00 <0.10 K/mcL LAB HEMETOLOGY METHOD 07/23/2024 2:15 PM EDT [facility] Neutrophils Relative 64.1 % LAB HEMETOLOGY METHOD 07/23/2024 2:15 PM EDT [facility] Lymphocytes Relative 29.2 % LAB HEMETOLOGY METHOD 07/23/2024 2:15 PM EDT [facility] Monocytes Relative 5.0 % LAB HEMETOLOGY METHOD 07/23/2024 2:15 PM EDT [facility] Eosinophils Relative 1.1 % LAB HEMETOLOGY METHOD 07/23/2024 2:15 PM EDT [facility] Basophils Relative 0.4 % LAB HEMETOLOGY METHOD 07/23/2024 2:15 PM EDT [facility] Immature Granulocytes Relative 0.2 % LAB HEMETOLOGY METHOD 07/23/2024 2:15 PM EDT [facility] Neutrophils Absolute 5.81 1.50 - 7.00 K/mcL LAB HEMETOLOGY METHOD 07/23/2024 2:15 PM EDT [facility] Lymphocytes Absolute 2.65 1.00 - 5.00 K/mcL LAB HEMETOLOGY METHOD 07/23/2024 2:15 PM EDT [facility] Monocytes Absolute 0.45 0.20 - 1.00 K/mcL LAB HEMETOLOGY METHOD 07/23/2024 2:15 PM EDT [facility] Eosinophils Absolute 0.10 0.00 - 0.50 K/[facility] LAB HEMETOLOGY METHOD 07/23/2024 2:15 PM EDT [facility] Basophils Absolute 0.04 0.00 - 0.20 K/mcL LAB HEMETOLOGY METHOD 07/23/2024 2:15 PM EDT [facility] Immature Granulocytes Absolute 0.02 0.00 - 0.03 K/[facility] LAB HEMETOLOGY METHOD 07/23/2024 2:15 PM EDT [facility] Blood Venous blood specimen / Unknown Venipuncture / Unknown 07/23/2024 12:08 PM EDT 07/23/2024 12:08 PM EDT us Javi PETERSEN LAB BLOOD ORDERABLES Final Res ult [facility] [address] [place] [address], * Hemoglobin A1c (07/23/2024 12:08 PM EDT) Hemoglobin A1C 5.4 <6.5 % LAB CHEMISTRY METHOD 07/23/2024 9:51 PM EDT [facility] Mean Bld Glu Estim. 108 mg/dL LAB CHEMISTRY METHOD 07/23/2024 9:51 PM EDT [facility] Blood Venous blood specimen / Unknown Venipuncture / Unknown 07/23/2024 12:08 PM EDT 07/23/2024 12:08 PM EDT Javi PETERSEN LAB BLOOD ORDERABLES Final Res ult [facility] [address] [place] [address], [place] [phone] * Comprehensive metabolic panel (07/23/2024 12:08 PM EDT) Sodium 138 133 - 145 mmol/L LAB CHEMISTRY METHOD 07/23/2024 3:46 PM [facility] Potassium 4.8 3.5 - 5.5 mmol/L LAB CHEMISTRY METHOD 07/23/2024 3:46 PM [facility] Chloride 109 96 - 110 mmol/L LAB CHEMISTRY METHOD 07/23/2024 3:46 PM [facility] CO2 23 21 - 32 mmol/L LAB CHEMISTRY METHOD 07/23/2024 3:46 PM [facility] Anion Gap 6 3 - 11 LAB CHEMISTRY METHOD 07/23/2024 3:46 PM [facility] Glucose 91 70 - 100 mg/dL LAB CHEMISTRY METHOD 07/23/2024 3:46 PM [facility] BUN 11 5 - 25 mg/dL LAB CHEMISTRY METHOD 07/23/2024 3:46 PM [facility] Creatinine 0.72 0.50 - 1.10 mg/dL LAB CHEMISTRY METHOD 07/23/2024 3:46 PM [facility] eGFR 107 >=60 mL/min/1. 73m2 LAB CHEMISTRY METHOD 07/23/2024 3:46 PM [facility] Comment:Calculation based on the Chronic Kidney Disease Epidemiology Collaboration (CKD-EPI) equation refit without adjustment for race. BUN/Creatinine Ratio 15.3 LAB CHEMISTRY METHOD 07/23/2024 3:46 PM EDT [facility] Calcium 8.7 8.5 - 10.5 mg/dL LAB CHEMISTRY METHOD 07/23/2024 3:46 PM EDT [facility] AST (SGOT) 14 10 - 42 unit/L LAB CHEMISTRY METHOD 07/23/2024 3:46 PM EDT [facility] ALT (SGPT) 11 10 - 60 unit/L LAB CHEMISTRY METHOD 07/23/2024 3:46 PM EDT [facility] Alkaline Phosphatase 73 42 - 121 unit/L LAB CHEMISTRY METHOD 07/23/2024 3:46 PM EDT [facility] Total Protein 7.1 6.0 - 8.0 g/dL LAB CHEMISTRY METHOD 07/23/2024 3:46 PM EDT [facility] Albumin 3.7 3.2 - 5.0 g/dL LAB CHEMISTRY METHOD 07/23/2024 3:46 PM EDT [facility] Total Bilirubin 0.2 0.0 - 1.4 mg/dL LAB CHEMISTRY METHOD 07/23/2024 3:46 PM EDT [facility] Blood Venous blood specimen / Unknown Venipuncture / Unknown 07/23/2024 12:08 PM EDT 07/23/2024 12:08 PM EDT Javi PETERSEN LAB BLOOD ORDERABLES Final Res ult [facility] [address] [place] [address], [place] [phone] * MG Mammo Digital Diagnostic bilat (10/05/2023 8:35 AM EDT) Anatomical Region Laterality Modality Breast Bilateral Mammography Historical Provider MD LUNA BI PROCEDURES Final R esult * Hm Cervical Cancer Screening: HPV (04/20/2022) Cervical Cancer Screening: HPV abstracted, negative us Historical Provider HEALTH MAINTENANCE Final Result from Last 3 Months or Most Recently Relevant to Health Maintenance Insurance Care Teams Shoe Repairman Relationship Specialty Start Date End Date [facility] [place] [facility] 10/19/22
--- OUTSIDE RECORDS SUMMARY | 2024-10-10 08:19 | XMS_ITS ---
Author Name [facility] Organization Unknown Care Team Organization Name Specialty Phone Email Start Date End Da ruby [facility] Jacob [facility] [id number]
== END 2024-10-10 08:06 | disposition home or self-care (01) ==
LOC: HO.MAMMO 08:05
PROVIDERS: PCP Internal Medicine; Visit Provider Internal Medicine
DX: Z12.31 Encounter for screening mammogram for malignant neoplasm of breast (principal)
CPT/HCPCS: 77063; 77067